=== PATIENT | female | born 1950 | race Caucasian/White ===

== ENCOUNTER → 2016-08-24 | Outpatient (CLI) | payer MEDICARE ==
--- NOTE | 2016-08-24 14:41 | REP ---
MAXILLOFACIAL CT WITHOUT CONTRAST: HISTORY: Chronic sinusitis. COMPARISON: 07/22/2009. Mucosal thickening is present in the sinuses. There is complete opacification of the right frontal sinus. There is almost complete opacification of the left frontal and right ethmoid sinuses. Moderate mucosal thickening is present in the left ethmoid and right maxillary sinuses. Minimal mucosal thickening is present in the sphenoid and left maxillary sinuses. Mucosal thickening involves the osteomeatal units. The left osteomeatal unit is incompletely seen. This is likely due to demineralization secondary to chronic sinusitis. The middle and inferior nasal turbinates are partially paradoxical. There is brennon bullosa on the left middle nasal turbinate. There is mild deviation of the nasal septum to the right. The nasal septum abuts the left middle nasal turbinate. The cribriform plate, medial faye of the orbits and optic canals are intact. The carotid canals form a segment of the posterolateral faye of the sphenoid sinus. The sphenoid sinus septum inserts into the right internal carotid canal wall. IMPRESSION: Sinus mucosal thickening as described above. Signed by Tom Ocampo MD 08/24/2016 02:44 P
== END ==
LOC: M RAD 13:19
PROVIDERS: ATTEND Otolaryngology
DX: J32.4 Chronic pansinusitis (principal)

== ENCOUNTER → 2016-11-25 | Outpatient (REF) | payer MEDICARE ==
[2016-11-25 11:43] LABS: CREATININE FOR GFR 0.82 MG/DL (0.55-1.02); GLOMERULAR FILTRATION RATE > 60.0 (>45)
[2016-11-25 11:55] LABS: ALBUMIN 3.5 GM/DL (3.2-5.2); ALBUMIN/GLOBULIN RATIO 1.17 (1.00-1.93); ALKALINE PHOSPHATASE 96 U/L (45-117); ALT/SGPT 20 U/L (12-78); ANION GAP 6 MEQ/L (8-16); AST/SGOT 10 U/L (15-37); BILIRUBIN,TOTAL 0.5 MG/DL (0.2-1.0); BLOOD UREA NITROGEN 22 MG/DL (7-18); CALCIUM LEVEL 9.3 MG/DL (8.8-10.2); CARBON DIOXIDE LEVEL 31 MEQ/L (21-32); CHLORIDE LEVEL 106 MEQ/L (98-107); CHOLESTEROL LEVEL 207 MG/DL (<200); CREATININE FOR GFR 0.84 MG/DL (0.55-1.02); GLOMERULAR FILTRATION RATE > 60.0 (>45); GLUCOSE, FASTING 106 MG/DL (80-110); POTASSIUM SERUM 4.4 MEQ/L (3.5-5.1); SODIUM LEVEL 143 MEQ/L (136-145); TOTAL PROTEIN 6.5 GM/DL (6.4-8.2); TRIGLYCERIDES LEVEL 305 MG/DL (<150)
== END ==
LOC: M SFHCADAM 09:39
PROVIDERS: ATTEND Internal Medicine
DX: I10 Essential (primary) hypertension (principal); R73.01 Impaired fasting glucose; E78.00 Pure hypercholesterolemia, unspecified; L65.9 Nonscarring hair loss, unspecified; E55.9 Vitamin D deficiency, unspecified; M79.1 Myalgia; Z11.59 Encounter for screening for other viral diseases

== ENCOUNTER → 2017-11-30 | Outpatient (REF) | payer MEDICARE ==
[2017-11-30 12:54] LABS: HEMATOCRIT 40.4 % (36.0-47.0); HEMOGLOBIN 13.7 g/dl (12.0-15.5); MEAN CORPUSCULAR HEMOGLOBIN 28.5 pg (27.0-33.0); MEAN CORPUSCULAR HGB CONC 33.9 g/dl (32.0-36.5); PLATELET COUNT, AUTOMATED 401 10^3/uL (150-450); RED BLOOD COUNT 4.81 10^6/uL (4.00-5.40); RED CELL DISTRIBUTION WIDTH 13.1 % (11.5-14.5); WHITE BLOOD COUNT 6.6 10^3/uL (4.0-10.0)
[2017-11-30 13:45] LABS: ALBUMIN 3.5 GM/DL (3.2-5.2); ALBUMIN/GLOBULIN RATIO 1.13 (1.00-1.93); ALKALINE PHOSPHATASE 87 U/L (45-117); ALT/SGPT 16 U/L (12-78); ANION GAP 6 MEQ/L (8-16); AST/SGOT 11 U/L (7-37); BILIRUBIN,TOTAL 0.8 MG/DL (0.2-1.0); BLOOD UREA NITROGEN 21 MG/DL (7-18); CALCIUM LEVEL 8.9 MG/DL (8.8-10.2); CARBON DIOXIDE LEVEL 29 MEQ/L (21-32); CHLORIDE LEVEL 110 MEQ/L (98-107); CHOLESTEROL LEVEL 226 MG/DL (<200); CHOLESTEROL RISK RATIO 5.794 (<5); CREATININE FOR GFR 0.74 MG/DL (0.55-1.30); GLOMERULAR FILTRATION RATE > 60.0 (>45); GLUCOSE, FASTING 92 MG/DL (70-100); HDL CHOLESTEROL 39 MG/DL (>40); LDL CHOLESTEROL 161.6 MG/DL (<100); MAGNESIUM LEVEL 2.4 MG/DL (1.8-2.4); NON-HDL-C 187 MG/DL; POTASSIUM SERUM 4.3 MEQ/L (3.5-5.1); SODIUM LEVEL 145 MEQ/L (136-145); TOTAL PROTEIN 6.6 GM/DL (6.4-8.2); TRIGLYCERIDES LEVEL 127 MG/DL (<150)
[2017-11-30 14:05] LABS: ESTIMATED AVERAGE GLUCOSE 117 MG/DL (60-110); HEMOGLOBIN A1c 5.7 %
== END ==
LOC: M SFHCADAM 11:24
DX: J44.9 Chronic obstructive pulmonary disease, unspecified (principal); I10 Essential (primary) hypertension; R73.01 Impaired fasting glucose; E78.00 Pure hypercholesterolemia, unspecified
CPT/HCPCS: 83735

== ENCOUNTER → 2018-09-16 | Outpatient (CLI) | payer MEDICARE ==
--- NOTE | 2018-09-16 13:24 | REP ---
LOW-DOSE LUNG SCREENING CT: 09/16/2018. Comparison: Chest x-ray 06/09/2017, CT chest with contrast 05/28/2009. Clinical history: Lung cancer screening: Personal history of nicotine dependence. Findings: Screening CT protocol followed. The only thin-section lung windows are presented per protocol. There is a 3 mm nodule superior segment of the right lower lobe unchanged from the study in 2009. There is a peripheral 5 mm noncalcified nodule on image 70 in the mid axillary line right lower lobe, this was 4 mm on the study 10 years ago. Some ground-glass opacity in the lateral segment of the right middle lobe peripherally on images 64 through 67. There are fibrotic change in the inferior lingular segment of the lower left lung at the left base adjacent to the heart border and also stable. Minor dependent atelectatic changes deep sulcus on the left. There is a 4.3 mm noncalcified nodule in the posterior segment of the right upper lobe adjacent to the paraspinal region. This is increased from 3 mm in that 2009. Minor apical pleuroparenchymal scarring noted and unchanged. No gross widening the mediastinum. Heart not grossly enlarged. No effusion, pleural thickening, calcified pleural plaque or pleural-based mass. Impression: 1. LungRADS category II, benign. No new nodules. A few nodules seen are stable or 1-2 mm larger compared to the 2009 study. Recommend follow[address] lung screening protocol in 1 year. Patients with this category of findings have less of 1% chance of malignancy at the time of the examination. Electronically Signed by Azeem Hopkins MD 09/16/2018 05:50 P
== END ==
LOC: M RAD 09:48
PROVIDERS: ATTEND Internal Medicine Pulmonary Disease
DX: Z12.2 Encounter for screening for malignant neoplasm of respiratory organs (principal); Z87.891 Personal history of nicotine dependence; R91.8 Other nonspecific abnormal finding of lung field

== ENCOUNTER → 2018-10-03 | Outpatient (REF) | payer MEDICARE | LOC: M SFHCPLAZ 16:58 | PROVIDERS: ATTEND Nurse Practitioner Adult Health | DX: R68.89 Other general symptoms and signs (principal) | CPT/HCPCS: 87081; 87804; G0463 ==

== ENCOUNTER → 2018-10-06 | Outpatient (REF) | payer MEDICARE ==
[2018-10-06 19:59] LABS: HEMATOCRIT 40.1 % (36.0-47.0); HEMOGLOBIN 13.5 g/dl (12.0-15.5); MEAN CORPUSCULAR HEMOGLOBIN 28.1 pg (27.0-33.0); MEAN CORPUSCULAR HGB CONC 33.7 g/dl (32.0-36.5); MEAN CORPUSCULAR VOLUME 83.4 fl (80.0-96.0); PLATELET COUNT, AUTOMATED 453 10^3/uL (150-450); RED BLOOD COUNT 4.81 10^6/uL (4.00-5.40); WHITE BLOOD COUNT 7.7 10^3/uL (4.0-10.0)
[2018-10-06 20:26] LABS: ALBUMIN 3.2 GM/DL (3.2-5.2); ALT/SGPT 22 U/L (12-78); BILIRUBIN,TOTAL 0.7 MG/DL (0.2-1.0); BLOOD UREA NITROGEN 26 MG/DL (7-18); CALCIUM LEVEL 8.9 MG/DL (8.8-10.2); CARBON DIOXIDE LEVEL 28 MEQ/L (21-32); CHLORIDE LEVEL 105 MEQ/L (98-107); CHOLESTEROL LEVEL 236 MG/DL (<200); CHOLESTEROL RISK RATIO 6.941 (<5); CREATININE FOR GFR 0.71 MG/DL (0.55-1.30); GLOMERULAR FILTRATION RATE > 60.0 (>45); GLUCOSE, FASTING 95 MG/DL (70-100); HDL CHOLESTEROL 34 MG/DL (>40); LDL CHOLESTEROL 164 MG/DL (<100); NON-HDL-C 202 MG/DL; POTASSIUM SERUM 3.9 MEQ/L (3.5-5.1); SODIUM LEVEL 140 MEQ/L (136-145); TOTAL 25(OH) VITAMIN D 54.9 NG/ML (30.0-100.0); TOTAL PROTEIN 6.6 GM/DL (6.4-8.2); TRIGLYCERIDES LEVEL 188 MG/DL (<150)
[2018-10-06 20:27] LABS: HEMOGLOBIN A1c 6.1 %
== END ==
LOC: M SFHCADAM 13:10
PROVIDERS: ATTEND Internal Medicine
DX: J44.9 Chronic obstructive pulmonary disease, unspecified (principal); I10 Essential (primary) hypertension; R73.01 Impaired fasting glucose; E78.00 Pure hypercholesterolemia, unspecified; E55.9 Vitamin D deficiency, unspecified

== ENCOUNTER → 2018-10-31 | Outpatient (REF) | payer MEDICARE ==
[2018-10-31 15:44] LABS: IMMUNOGLOBULIN E 15.9 IU/ML (<100); IMMUNOGLOBULIN M 87.9 MG/DL (40-230)
== END ==
LOC: M SFHCPLAZ 11:44
PROVIDERS: ATTEND Internal Medicine Infectious Disease
DX: J32.9 Chronic sinusitis, unspecified (principal)

== ENCOUNTER → 2018-11-17 | Outpatient (CLI) | payer MEDICARE ==
--- NOTE | 2018-11-17 12:48 | REP ---
MAXILLOFACIAL CT STUDY WITHOUT CONTRAST: HISTORY: Recurrent sinusitis. History of to prior sinus surgery. Preoperative planning. COMPARISON STUDY: August 24, 2016. CT FINDINGS: There is moderate mucosal thickening affecting the maxillary sinuses bilaterally. There is evidence of nasoantral window procedure bilaterally. There is a narrow opening on the right between the maxillary sinus and the nasal cavity but on the left it is occluded with mucosal thickening. There is a complete opacification of the ethmoid air cells bilaterally with some septal thickening. There is moderate mucosal thickening affecting the frontal sinuses bilaterally. Moderate mucosal thickening is seen affecting the sphenoid sinus air cells bilaterally. There is chronic bony sinus wall thickening affecting the maxillary sinuses bilaterally. Orbital margins are intact. No intraorbital abnormality is seen. Mastoid aeration remains normal. IMPRESSION: Tracy sinusitis changes as noted above. The maxillary sinuses are more opacified than they were on the August 24, 2016. Ethmoid sinuses are completely opacified bilaterally. Electronically Signed by Hai Ramos MD 11/17/2018 06:58 P
== END ==
LOC: M RAD 09:36
PROVIDERS: ATTEND Otolaryngology
DX: J32.9 Chronic sinusitis, unspecified (principal)

== ENCOUNTER → 2018-12-13 | Outpatient (REF) | payer MEDICARE ==
[~2018-12-13] MED LIST: ADVA230A INH; ALLE180T33 PO; ASPI81TA26 PO; ATOR80TA59 PO; BUDE0.5S6; COQ-100C5 PO; LASI40TA9 PO; LISI10TA4 PO; MONT10TA2 PO; MUPI2OI; NASA1SPR; OMEP40CA2 PO; PULM0.5S NARES; SULF1TAB93; VITA50005 PO
== END ==
LOC: M SFHCPLAZ 13:13
PROVIDERS: ATTEND Internal Medicine Infectious Disease
DX: J32.0 Chronic maxillary sinusitis (principal)
CPT/HCPCS: 87070; 87077; 87186; G0463

== ENCOUNTER 2018-12-21 08:02 | Day surgery (SDC) | payer MEDICARE ==
[2018-12-21] VITALS (7 sets, daily range): BP systolic 136–183; BP diastolic 65–77
[~2018-12-21] VITALS: Ht 167.6 cm; Wt 100.0 kg
[~2018-12-21 08:02] MED LIST changes: +LR 1,000 ML IV ONE; -SULF1TAB93; +dexameTHASONE 4 MG/ML 1ML VIAL (J1100) IV ONE
[2018-12-21] MEDS ORDERED: ONDANSETRON 4MG/2ML VIAL (J2405) As Ordered ONE (08:39)
[2018-12-21] MEDS ORDERED: GLYCOPYRROLATE INJ 0.2 MG/ML 2 ML VIAL As Ordered ONE (08:39)
[2018-12-21] MEDS ORDERED: HYDROmorphone HCL 2 MG/ML 1ML VIAL (J1170) As Ordered ONE (08:39)
[2018-12-21] MEDS ORDERED: fentaNYL 100 MCG/2 ML INJECTION (J3010) As Ordered ONE ×2 (08:39→12:17)
[2018-12-21] MEDS ORDERED: PROPOFOL 200 MG/20 ML VIAL As Ordered ONE ×2 (08:39→10:36)
[2018-12-21] MEDS ORDERED: ROCURONIUM BROMIDE 50 MG/5 ML VIAL As Ordered ONE ×2 (08:39→10:21)
[2018-12-21] MEDS ORDERED: NEOSTIGMINE 10 MG/10 ML VIAL (J2710) As Ordered ONE (08:39)
[2018-12-21] MEDS ORDERED: LIDOCAINE 2% INJ 100 MG/5 ML SDV (FOR ANES.) As Ordered ONE (08:39)
[2018-12-21] MEDS ORDERED: MIDAZOLAM INJ 2 MG/2 ML VIAL (J2250) As Ordered ONE (08:39)
[2018-12-21] MEDS ORDERED: dexameTHASONE 4 MG/ML 1ML VIAL (J1100) As Ordered ONE (08:39)
[2018-12-21] MEDS: FEXOFENADINE 60 MG TAB PO SCH (09:00)
[2018-12-21] MEDS ORDERED: SULF1TAB93 (09:07)
[2018-12-21] MEDS ORDERED: METHYLENE BLUE 0.5% (5MG/ML) 10 ML AMP (PROVAYBLUE)(Q9968 PER 1MG) As Ordered ONE (09:24)
[2018-12-21] MEDS ORDERED: LIDOCAINE W/EPINEPHRINE 1% 20ML VIAL As Ordered ONE (09:24)
[2018-12-21] MEDS ORDERED: SODIUM CHLORIDE 0.9% NASAL GEL 15GM (AYR) As Ordered ONE (09:24)
[2018-12-21] MEDS ORDERED: EPINEPHrine 1MG/ML INJ 30ML MD-VIAL As Ordered ONE (09:24)
[2018-12-21] MEDS ORDERED: LR 1,000 ML IV SCH ×2 (13:30)
[2018-12-21] MEDS ORDERED: ONDANSETRON 4MG/2ML VIAL (J2405) IV PRN (13:30)
[2018-12-21] MEDS ORDERED: fentaNYL 100 MCG/2 ML INJECTION (J3010) IV PRN (13:30)
[2018-12-21] MEDS ORDERED: METOCLOPRAMIDE INJ 10MG/2ML VIAL (J2765) IV PRN (13:30)
[2018-12-21] MEDS ORDERED: ALBUTEROL SULFATE 2.5 MG/0.5 ML INH NEB SOLN As Ordered ONE (14:52)
[2018-12-21] MEDS ORDERED: ALBUTEROL SULFATE 2.5 MG/0.5 ML INH NEB SOLN INH ONE (15:00)
[2018-12-21] MEDS: LR 1,000 ML IV SCH ×2 (17:00→20:10)
[2018-12-21] MEDS ORDERED: FUROSEMIDE 40 MG TAB PO SCH (17:15)
[2018-12-21 18:00] LABS: HEMATOCRIT 42.4 % (36.0-47.0); HEMOGLOBIN 13.9 g/dl (12.0-15.5); MEAN CORPUSCULAR HEMOGLOBIN 28.1 pg (27.0-33.0); MEAN CORPUSCULAR HGB CONC 32.8 g/dl (32.0-36.5); MEAN CORPUSCULAR VOLUME 85.7 fl (80.0-96.0); PLATELET COUNT, AUTOMATED 422 10^3/uL (150-450); RED BLOOD COUNT 4.95 10^6/uL (4.00-5.40); WHITE BLOOD COUNT 13.8 10^3/uL (4.0-10.0)
--- NOTE | 2018-12-21 18:20 | REP ---
Chest x-ray: Two views. History: Short of breath. Comparison study: June 09, 2017. Findings: Oxygen delivery tubing is seen. The lungs are well inflated and free of infiltrate. Pleural angles are sharp. Heart size is normal. Pulmonary vasculature is not increased. No significant bony abnormality is seen. Impression: No acute disease. Electronically Signed by Hai Ramos MD 12/21/2018 06:11 P
[2018-12-21] MEDS: ATORVASTATIN 20 MG TAB PO SCH (18:24)
[2018-12-21] MEDS: LISINOPRIL 10 MG TAB PO SCH (18:24)
[2018-12-21] MEDS: ASPIRIN 81 MG ENTERIC TAB PO SCH (18:26)
[2018-12-21 18:27] LABS: ALBUMIN 3.5 GM/DL (3.2-5.2); BILIRUBIN,TOTAL 0.4 MG/DL (0.2-1.0); CALCIUM LEVEL 8.7 MG/DL (8.8-10.2); CREATININE FOR GFR 1.17 MG/DL (0.55-1.30); GLOMERULAR FILTRATION RATE 48.8 (>45); POTASSIUM SERUM 4.5 MEQ/L (3.5-5.1); TOTAL PROTEIN 7.4 GM/DL (6.4-8.2)
[2018-12-21] MEDS ORDERED: SIMETHICONE 80 MG CHEW TAB PO PRN (18:30)
--- NOTE | 2018-12-21 18:30 | HPEPDOC ---
General Date of Admission Attending Physician: SHARAD JOVEL MD Chief Complaint The patient is a 68-year-old female admitted with a reason for visit of Chronic Rhinosinusitis. History of Present Illness Patient is an obese female, past medical history significant for hypertension, COPD, generalized osteoporosis, seasonal allergies, with chronic sinusitis for which she had sinus surgery today by ENT. Post surgery, patient was hypoxic with oxygen saturation dropping into the 70s. Her discharge home was delayed for further observation, evaluation and management. On assessment of patient she states she has had intermittent periods of shortness of breath with minimal exertion for over 2 years. Examples of minimal activity of walking to the end of her driveway, or walking up the stairs. She is followed by Dr. Harvey pulmonology. She has not had to use oxygen at home. She denied any chest pain and at time of evaluation was on 2 L nasal cannula. Oxygen saturation is in the low 90s Home Medications Scheduled Aspirin (Aspirin EC) 81 Mg Tablet.dr, 81 MG PO DAILY, (Reported) Atorvastatin Calcium (Atorvastatin Calcium) 80 Mg Tablet, 80 MG PO DAILY, (Reported) Budesonide (Pulmicort) 0.5 Mg/2 Ml Ampul.neb, 0.5 MG NARES BID, (Reported) Ergocalciferol (Vitamin D2) (Vitamin D2) 50,000 Unit Capsule, 50,000 UNIT PO QWEEK, (Reported) Fexofenadine HCl (Aissatou Allergy) 180 Mg Tablet, 180 MG PO DAILY, (Reported) Fluticasone Propion/Salmeterol (Advair Hfa 230-21 Mcg Inhaler) 12 Gm Hfa.aer.ad, 2 PUFFS INH BID, (Reported) Furosemide (Lasix) 40 Mg Tablet, 40 MG PO DAILYPRN, (Reported) Lisinopril (Lisinopril) 10 Mg Tablet, 10 MG PO DAILY, (Reported) Montelukast Sodium (Montelukast Sodium) 10 Mg Tablet, 10 MG PO DAILY, (Reported) Omeprazole (Omeprazole) 40 Mg Capsule.dr, 40 MG PO DAILY, (Reported) Ubidecarenone (Coq-10) 100 Mg Capsule, 400 MG PO DAILY, (Reported) Scheduled PRN Triamcinolone Acetonide (Nasacort) 10.8 Ml [place], 55 MCG NA BIDP PRN for NASAL CONGESTION, (Reported) Miscellaneous Medications Sulfamethoxazole/Trimethoprim (Sulfamethoxazole-Tmp Ds Tablet) 1 Each Tablet, (Reported) Allergies Coded Allergies: METALS (Verified Allergy, Intermediate, METAL/NICKEL-RASH,RUNNY NOSE,SNEEZING, 10/09/09) doxycycline (Verified Allergy, Unknown, gi issues, 12/14/18) ENVIROMENTAL (Verified Adverse Reaction, Mild, ANIMAL/ENVIRONMENTAL- ITCHING EYES, 12/14/18) acetaminophen (Verified Adverse Reaction, Unknown, nausea, 12/14/18) oxycodone (Verified Adverse Reaction, Unknown, nausea, 12/14/18) streptomycin (Verified Adverse Reaction, Unknown, pins and needles of fin gers and lips, 12/14/18) Past Medical History Medical History Hypertension COPD Hypercholesterolemia Generalized osteoarthrosis Chronic maxillary sinusitis Seasonal allergies Surgical History Tonsillectomy [place] teeth removal Bilateral otoplasty Left breast lumpectomy Septoplasty Skin biopsy from left chest Sinus polyp removal Colonoscopy Removal of left breast intraductal papilloma Sinus surgery Social History * Smoker: former Smoker Alcohol: rarely Drugs: denies A-FIB/CHADSVASC A-FIB History Current/History of A-Fib/PAF?: No Current Oral Anticoagulant The: No Review of Systems Other systems A 10 point pertinent review of systems was completed, negative except as stated in the history of presenting illness Physical Examination Other physical findings GENERAL: NAD SKIN : Warm, dry intact HEENT: Atraumatic, normocephalic, PERRL, moist mucous membrane CV: Regular rate and rhythm, S1S2, no JVD, no edema, distal pulses + and palpable RESP: diminished, no accessory muscle use noted ABDOMEN: BS+ non distended non tender MS: no joint deformities NEURO: Alert and oriented x 3, CN2-12 grossly intact PSYCH: no anxiety or agitation, appropriate mood and affect. Vital Signs Vital Signs Date Time Temp Pulse Resp B/P (MAP) Pulse Ox O2 Delivery O2 Flow Rate FiO2 12/21/18 17:00 2.0 12/21/18 16:55 97.3 86 16 183/77 (112) 96 Laboratory Data Labs 24H Laboratory Tests 2 12/21/18 17:51: CBC/BMP Microbiology Microbiology 12/21/18 Fungal Smear, Received Pending 12/21/18 Fungal Culture, Received Pending 12/21/18 Gram Stain - Final, Resulted 12/21/18 Wound Culture, Resulted Pending 12/21/18 Fungal Smear, Received Pending 12/21/18 Fungal Culture, Received Pending 12/21/18 Anaerobic Culture, Received Pending 12/21/18 Anaerobic Culture, Received Pending 12/21/18 Gram Stain - Final, Resulted 12/21/18 Wound Culture, Resulted Pending Assessment/Plan Acute hypoxia -In the postoperative setting -cause could be multifactorial with underlying COPD and sedating meds used for surgery -CT chest with and without contrast to evaluate for pulmonary emboli -Continue supplemental oxygen with monitoring to keep saturation greater than 90 -scheduled bronchodilator therapy Chronic maxillary sinusitis -S/P sinus surgery 12/21/2018 -continue augmentin Hypertension -Continue lisinopril COPD -Scheduled and as needed nebulizer therapy -Continued monitoring of oxygen saturation to keep greater than 90% -Supplemental oxygen -Follow findings of CTA Seasonal allergies -Continue Advair, Singulair and Nasacort GI and DVT prophylaxis -Lovenox and proton pump inhibitor daily Plan / VTE VTE Prophylaxis Ordered?: Yes STARLA GOODMAN December 21, 2018 18:30
[2018-12-21] MEDS: BUDESONIDE 0.5 MG/2 ML INHALATION SUSPENSION INH SCH ×2 (20:00→20:52)
[2018-12-21] MEDS: SODIUM CHLORIDE NASAL 0.65% SPRAY BTL (OCEAN) SCH (20:16)
[2018-12-21] MEDS: AUGMENTIN 875 MG TAB PO SCH (20:16)
[2018-12-21] MEDS: IPRATROPIUM 0.5MG/ALBUTEROL 2.5MG INH SOL UD 3ML (DUONEB)(J7620) NEB SCH (20:24)
[2018-12-21] MEDS: ADVAIR HFA 230/21MCG INHALER INH SCH (20:25)
[2018-12-21] MEDS ORDERED: ENOXAPARIN 40 MG/0.4 ML SYRINGE (J1650) SC SCH (21:00)
[2018-12-22 02:00] VITALS: BP 138/68
[2018-12-22 06:00] VITALS: BP 128/65
[2018-12-22] MEDS: IPRATROPIUM 0.5MG/ALBUTEROL 2.5MG INH SOL UD 3ML (DUONEB)(J7620) NEB SCH (08:00)
[2018-12-22] MEDS: ADVAIR HFA 230/21MCG INHALER INH SCH (08:09)
[2018-12-22] MEDS ORDERED: OMEPRAZOLE 20 MG CAP PO SCH (09:00)
[2018-12-22] MEDS ORDERED: VITAMIN D 50,000 UNITS CAPSULE (ERGOCALCIFEROL 1.25MG) PO SCH (09:00)
[2018-12-22] MEDS ORDERED: MONTELUKAST 10 MG TAB PO SCH (09:00)
[2018-12-22] MEDS: FEXOFENADINE 60 MG TAB PO SCH (09:14)
[2018-12-22] MEDS: ASPIRIN 81 MG ENTERIC TAB PO SCH (09:15)
[2018-12-22] MEDS: SODIUM CHLORIDE NASAL 0.65% SPRAY BTL (OCEAN) SCH (09:15)
[2018-12-22] MEDS: AUGMENTIN 875 MG TAB PO SCH (09:15)
[2018-12-22] MEDS: ATORVASTATIN 20 MG TAB PO SCH (09:15)
[2018-12-22 09:16] VITALS: BP 128/65
[2018-12-22] MEDS: LISINOPRIL 10 MG TAB PO SCH (09:16)
[2018-12-22 10:00] VITALS: BP 139/71
--- NOTE | 2018-12-22 10:30 | IPNPDOC ---
Date Seen The patient was seen on 12/22/18. Progress Note SUBJECTIVE: Patient was found sitting up in bed eating breakfast comfortably today. She denies any complaints including any chest pain or shortness of breath. Has been off of oxygen support all morning with saturations stable, 94-96% on monitor. Patient reports that her saturations always drop postnasal surgery as she has significant postnasal drip postop and that this is normal for her. She states that she is back to her baseline and is ready to go home. OBJECTIVE PHYSICAL EXAMINATION: VITAL SIGNS: Please see below. General: No acute distress, Alert Eyes: Normal sclera, EOMI, [place] HENT: Atraumatic, neck supple, moist mucous membranes Cardiovascular: Normal rate, normal rhythm. No murmurs appreciated. Pulmonary: Clear to auscultation b/l, no wheezing GI: Soft, nontender, nondistended Skin: Warm and dry Neuro: CN grossly intact. No focal deficits. Strengths equal b/l. Psych: oriented x 3 LABORATORY DATA, IMAGING STUDIES, MICROBIOLOGY: Please see below. ASSESSMENT AND PLAN: 1. Acute hypoxia - Occurred post op in setting of underlying COPD and chronic rhinosinusitis. - States that she has had 3 surgeries and always desat immediate post op due to fluids in her pharynx. - CTA was ordered yesterday but patient had refused because she doesn't think she is at risk for have symptoms for PE, patient is a prior nurse. - She was comfortable this morning without any SOB, normal HR and saturations >94% on room air. - CXR noted with no abnormalities. - Recommend follow up as outpatient with her Test Data Developer Dr. Harvey within 1 week. 2. Chronic Maxillary sinusitis - s/p surgery 12/21 with previous similar surgeries in the past. 3. HTN - c/w home medications. Monitor BP 4. COPD - c/w nebs as needed. - O2 support. 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 Patient technically is outpatient and not admitted. I think that she is stable from my point of view and can be discharged per primary provider's discretion. DISPOSITION: Home. A-FIB/CHADSVASC A-FIB History Current/History of A-Fib/PAF?: No VS, I&O, 24H, Fishbone Vital Signs/I&O Vital Signs Date Time Temp Pulse Resp B/P (MAP) Pulse Ox O2 Delivery O2 Flow Rate FiO2 12/22/18 09:16 128/65 12/22/18 06:00 98.2 76 14 94 12/22/18 03:44 Tent/Van 5.0 28 I&O- Last 24 Hours up to 6 AM 12/22/18 06:00 Intake Total 3390 ml Output Total 30 ml Balance 3360 ml Laboratory Data 24H LABS Laboratory Tests 2 12/21/18 17:51: Nucleated Red Blood Cells % (auto) 0.0, Anion Gap 9, Glomerular Filtration Rate 48.8, Blood Urea Nitrogen 30H, Creatinine 1.17, Sodium Level 138, Potassium Level 4.5, Chloride Level 106, Carbon Dioxide Level 23, Calcium Level 8.7L, Aspartate Amino Transf (AST/SGOT) 12, Alanine Aminotransferase (ALT/SGPT) 23, Alkaline Phosphatase 114, Total Bilirubin 0.4, Total Protein 7.4, Albumin 3.5, YP-Apa-G-Type Natriuretic Peptide 55, Albumin/Globulin Ratio 0.90L CBC/BMP Laboratory Tests 12/21/18 17:51 Red Blood Count 4.95, Mean Corpuscular Volume 85.7, Mean Corpuscular Hemoglobin 28.1, Mean Corpuscular Hemoglobin Concent 32.8, Red Cell Distribution Width 13.5, Calcium Level 8.7 L, Aspartate Amino Transf (AST/SGOT) 12, Alanine Aminotransferase (ALT/SGPT) 23, Alkaline Phosphatase 114, Total Bilirubin 0.4, Total Protein 7.4, Albumin 3.5 Microbiology Microbiology 12/21/18 Fungal Smear, Received Pending 12/21/18 Fungal Culture, Received Pending 12/21/18 Gram Stain - Final, Resulted 12/21/18 Wound Culture, Resulted Pending 12/21/18 Fungal Smear, Received Pending 12/21/18 Fungal Culture, Received Pending 12/21/18 Anaerobic Culture, Received Pending 12/21/18 Anaerobic Culture, Received Pending 12/21/18 Gram Stain - Final, Resulted 12/21/18 Wound Culture, Resulted Pending SHARAD JOVEL MD December 22, 2018 10:30
--- NOTE | 2019-01-10 22:07 | RO ---
DATE OF PROCEDURE: 12/21/2018 PREOPERATIVE DIAGNOSES: Chronic rhinitis, chronic maxillary sinusitis, chronic ethmoid sinusitis, chronic frontal sinusitis. Nasal polyposis. POSTOPERATIVE DIAGNOSES: Chronic rhinitis, chronic maxillary sinusitis, chronic ethmoid sinusitis, chronic frontal sinusitis. Nasal polyposis. PROCEDURE PERFORMED: 1. Stereotactic surgery using the Brainlab. 2. Bilateral endoscopic maxillary antrostomy with soft tissue removal and maxillary sinus lavage. 3. Bilateral endoscopic anterior and posterior ethmoidectomy. 4. Bilateral frontal sinusotomy using balloon and frontal sinus lavage. 5. Bilateral implantation of the Propel stents. SURGEON: Romain Gordillo MD PRIMER CHARGER: ANESTHESIA: GA CLINICAL PREAMBLE: This 68-year-old woman who has had two prior sinus surgeries done with the last one being done in [place] two years ago presented to my office complaining of constant bilateral nasal congestion. Examination revealed bilateral nasal polyposis with erythematous nasal mucosa consistent with chronic usage of Afrin. CT scan confirmed the presence of chronic rhinosinusitis with nasal polyposis. Management options including surgery listed above have been discussed with the patient in great detail. She understood and consented to the procedure. DESCRIPTION OF OPERATION: Patient was identified in preoperative holding and brought to the operating room in stable condition. In supine position on the operating table, patient received general anesthesia followed orotracheal intubation without incident. Patient was prepped and draped in the usual fashion for the procedure. The headband for the Brainlab system was successfully secured to the patient's forehead. Good surface matching was successfully performed with the Brainlab system. Good consistency between the patient's anatomy and the CT images was confirmed. Both sides of the eye were lubricated and protected using the Tegaderm. Both sides of the nasal cavity were packed using pledgets soaked in 1:1000 epinephrine. After a waiting period, the pledgets were removed. Using 0 degrees nasal endoscope both sides of the nasal cavity were inspected. Nasal polyposis was noted in both sides of the nasal cavity. The polyps and the anterior surface of the middle nasal turbinates were infiltrated with 1% lidocaine with 1:100,000 epinephrine. Debridement of the polyps were then carried out using the Olympus Benjamín microdebrider set in oscillating mode at 5000 RPM. At this time additional polyps were removed from the left ostiomeatal complex area. The remnant of the uncinate process was identified and then infiltrated with 1% lidocaine with 1:100,000 epinephrine. The left maxillary antrum was identified using ball-tip ostium seeker. Maxillary antrostomy was then performed with removal of the soft tissue. An accessory ostium was noted in the posterior fontanelle area. This was then connected to the left maxillary antrum. At this time the balloon was successfully introduced into the left frontal recess with positive trans-illumination of the left frontal sinus. The balloon was then inflated to an atmospheric pressure for 5 seconds. The frontal sinus was then irrigated with 200 mL of warm saline solution. At this time the remnant of the anterior ethmoid air cell with polypoid degeneration were identified and taken down. Additional remnant of the posterior ethmoid air cells were also identified and resected as well. The left maxillary sinus was lavaged with about 200 mL of warm saline solution as well. The left nasal cavity was then packed using pledgets soaked in 1:1000 epinephrine. The patient was then turned to the right side of the nasal cavity. The same procedure was carried out to infiltrate remnant of the right uncinate process followed by resection of the polypoid tissue around the right maxillary antrum. The right maxillary ostium was identified connected to the right maxillary antrum as well. Right frontal recess was identified and the balloon was placed into the right frontal sinus opening. The balloon was inflated to atmospheric pressure for 5 seconds. The right frontal sinus as irrigated with 100 mL of warm saline solution. The right maxillary sinus was similarly irrigated with 100 mL of warm saline lavage as well. The remnant of the right anterior ethmoid air cell with polypoid degeneration were resected. The remnant of the posterior ethmoid air cells with polypoid degeneration were also resected as well. The right ostiomeatal complex was then packed using pledgets soaked in 1:1000 epinephrine. After a waiting period, both ostiomeatal complexes were found to be free of bleeding. Pledgets were removed. The Propel stents were then placed into each side of the ostiomeatal complex to allow medialization of the left and right middle nasal turbinate. At the end of the procedure sponge and instrument counts were correct. No complications were encountered. Estimated blood loss was approximately 100 mL. General anesthesia was reversed and patient was extubated and brought to recovery room in stable condition. In the recovery area, patient exhibited full and symmetric extraocular motion with no evidence of periorbital ecchymosis. [facility]
== END 2018-12-22 10:39 | disposition home or self-care (01) ==
LOC: M SDC 08:02 → M MSPAV 16:53 → M SDC 12-22 10:39
PROVIDERS: ATTEND Otolaryngology
DX: J32.8 Other chronic sinusitis (principal); J32.0 Chronic maxillary sinusitis; J32.2 Chronic ethmoidal sinusitis; J32.1 Chronic frontal sinusitis; J33.9 Nasal polyp, unspecified; I10 Essential (primary) hypertension; J44.9 Chronic obstructive pulmonary disease, unspecified; K21.9 Gastro-esophageal reflux disease without esophagitis; E78.00 Pure hypercholesterolemia, unspecified; R29.898 Other symptoms and signs involving the musculoskeletal system; M12.9 Arthropathy, unspecified; M81.0 Age-related osteoporosis without current pathological fracture; J30.89 Other allergic rhinitis; Z88.1 Allergy status to other antibiotic agents; Z88.5 Allergy status to narcotic agent; Z88.6 Allergy status to analgesic agent; Z91.09 Other allergy status, other than to drugs and biological substances; Z86.14 Personal history of Methicillin resistant Staphylococcus aureus infection; Z90.710 Acquired absence of both cervix and uterus
CPT/HCPCS: 31255; 31267; 31296; 36415; 71046; 80053; 83880; 85027; 87070; 87075; 87102; 87205; 88305; C2625; G0378; J1100; J1170; J2250; J2405; J2710; J3010; Q9968

== ENCOUNTER → 2019-03-01 | Outpatient (REF) | payer MEDICARE ==
[~2019-03-01] MED LIST changes: -LR 1,000 ML IV ONE; +SULF1TAB93; -dexameTHASONE 4 MG/ML 1ML VIAL (J1100) IV ONE
== END ==
LOC: M LAB REF 12:27
PROVIDERS: ATTEND Otolaryngology
DX: J32.0 Chronic maxillary sinusitis (principal)

== ENCOUNTER → 2019-03-27 | Outpatient (REF) | payer MEDICARE ==
[2019-03-27 13:03] LABS: ALBUMIN 3.4 GM/DL (3.2-5.2); ALT/SGPT 19 U/L (12-78); BILIRUBIN,TOTAL 0.5 MG/DL (0.2-1.0); BLOOD UREA NITROGEN 18 MG/DL (7-18); CALCIUM LEVEL 9.1 MG/DL (8.8-10.2); CARBON DIOXIDE LEVEL 29 MEQ/L (21-32); CHLORIDE LEVEL 110 MEQ/L (98-107); CHOLESTEROL LEVEL 205 MG/DL (<200); CHOLESTEROL RISK RATIO 5.694 (<5); CREATININE FOR GFR 0.71 MG/DL (0.55-1.30); GLOMERULAR FILTRATION RATE > 60.0 (>45); GLUCOSE, FASTING 100 MG/DL (70-100); HDL CHOLESTEROL 36 MG/DL (>40); LDL CHOLESTEROL 125 MG/DL (<100); MAGNESIUM LEVEL 2.3 MG/DL (1.8-2.4); NON-HDL-C 169 MG/DL; POTASSIUM SERUM 4.4 MEQ/L (3.5-5.1); SODIUM LEVEL 143 MEQ/L (136-145); TOTAL PROTEIN 6.4 GM/DL (6.4-8.2); TRIGLYCERIDES LEVEL 220 MG/DL (<150)
[2019-03-27 14:17] LABS: HEMOGLOBIN A1c 6.5 %
== END ==
LOC: M SFHCADAM 10:36
PROVIDERS: ATTEND Internal Medicine
DX: I10 Essential (primary) hypertension (principal); R73.01 Impaired fasting glucose; E78.00 Pure hypercholesterolemia, unspecified

== ENCOUNTER → 2019-09-20 | Outpatient (REF) | payer MEDICARE ==
[~2019-09-20] MED LIST changes: -MONT10TA2 PO; +MONT10TA4 PO; -OMEP40CA2 PO; +OMEP40CA97 PO
== END ==
LOC: M SFHCADAM 14:20
PROVIDERS: ATTEND Internal Medicine
DX: E78.00 Pure hypercholesterolemia, unspecified (principal); R73.01 Impaired fasting glucose; E55.9 Vitamin D deficiency, unspecified

== ENCOUNTER → 2019-09-22 | Outpatient (CLI) | payer MEDICARE ==
[2019-09-22 17:37] LABS: ALBUMIN 3.5 GM/DL (3.2-5.2); ALT/SGPT 18 U/L (12-78); BLOOD UREA NITROGEN 26 MG/DL (7-18); CALCIUM LEVEL 8.8 MG/DL (8.8-10.2); CARBON DIOXIDE LEVEL 29 MEQ/L (21-32); CHLORIDE LEVEL 106 MEQ/L (98-107); CHOLESTEROL LEVEL 244 MG/DL (<200); CHOLESTEROL RISK RATIO 7.176 (<5); CREATININE FOR GFR 0.75 MG/DL (0.55-1.30); GLOMERULAR FILTRATION RATE > 60.0 (>39); GLUCOSE, FASTING 106 MG/DL (70-100); HDL CHOLESTEROL 34 MG/DL (>40); LDL CHOLESTEROL 164 MG/DL (<100); NON-HDL-C 210 MG/DL; POTASSIUM SERUM 4.1 MEQ/L (3.5-5.1); SODIUM LEVEL 139 MEQ/L (136-145); TOTAL PROTEIN 6.3 GM/DL (6.4-8.2); TRIGLYCERIDES LEVEL 232 MG/DL (<150)
[2019-09-22 17:41] LABS: MALB URINE SIEMENS 45.7 MG/L; MAU/CREAT RATIO 29.2 MCG/MG (0.0-30.0); TOTAL 25(OH) VITAMIN D 60.8 NG/ML (30.0-100.0)
== END ==
LOC: M ADAMS 13:31
PROVIDERS: ATTEND Internal Medicine
DX: E78.00 Pure hypercholesterolemia, unspecified (principal); R73.01 Impaired fasting glucose; E55.9 Vitamin D deficiency, unspecified

== ENCOUNTER → 2020-01-31 | Outpatient (CLI) | payer MEDICARE ==
--- NOTE | 2020-01-31 14:55 | REPPI ---
RIGHT HAND SERIES: Four views. HISTORY: Paronychia. Swelling of the 2nd finger. FINDINGS: There is diffuse osteopenia. Soft tissue swelling is seen about the middle and distal phalanges of the index finger mild in degree. No erosive change is seen. There is mild osteoarthritic spurring at the DIP joint of the index long and ring fingers. No soft tissue calcification is seen. IMPRESSION: Osteoarthritic changes. Diffuse osteoporosis. Soft tissue swelling of the index finger. Electronically Signed by Hai Ramos MD 01/31/2020 03:02 P
== END ==
LOC: M PLAIMG 11:45
PROVIDERS: ATTEND Physician Assistant Medical
DX: M19.041 Primary osteoarthritis, right hand (principal); M85.841 Other specified disorders of bone density and structure, right hand; L03.011 Cellulitis of right finger
CPT/HCPCS: 73130; G0463

== ENCOUNTER → 2020-02-07 | Outpatient (CLI) | payer MEDICARE ==
--- NOTE | 2020-02-07 10:35 | REPPI ---
Clinical: Right foot pain and swelling. Technique: AP, lateral, bilateral oblique views of the right foot. Findings: Generalized soft tissue swelling suggested. Underlying osteopenia and degenerative changes of the osseous structures and joint space is noted without obvious acute fracture or dislocation. Lateral view demonstrates small calcaneal heal spur. Impression: Soft-tissue swelling. No acute fracture or dislocation. Electronically Signed by Cliff Wells MD 02/07/2020 10:27 A
== END ==
LOC: M PLAIMG 10:06
PROVIDERS: ATTEND Family Medicine
DX: M85.871 Other specified disorders of bone density and structure, right ankle and foot (principal); M19.071 Primary osteoarthritis, right ankle and foot; M77.31 Calcaneal spur, right foot; M79.671 Pain in right foot; M79.89 Other specified soft tissue disorders
CPT/HCPCS: 73630; G0463

== ENCOUNTER → 2020-02-23 | Outpatient (REF) | payer MEDICARE ==
[2020-02-23 14:04] LABS: HEMATOCRIT 39.7 % (36.0-47.0); HEMOGLOBIN 12.9 g/dl (12.0-15.5); MEAN CORPUSCULAR HGB CONC 32.5 g/dl (32.0-36.5); MEAN CORPUSCULAR VOLUME 86.1 fl (80.0-96.0); PLATELET COUNT, AUTOMATED 381 10^3/uL (150-450); RED BLOOD COUNT 4.61 10^6/uL (4.00-5.40); WHITE BLOOD COUNT 5.5 10^3/uL (4.0-10.0)
[2020-02-23 14:42] LABS: ALBUMIN 3.5 GM/DL (3.2-5.2); ALT/SGPT 20 U/L (12-78); BILIRUBIN,TOTAL 0.7 MG/DL (0.2-1.0); BLOOD UREA NITROGEN 19 MG/DL (7-18); CALCIUM LEVEL 8.6 MG/DL (8.8-10.2); CARBON DIOXIDE LEVEL 28 MEQ/L (21-32); CHLORIDE LEVEL 107 MEQ/L (98-107); CHOLESTEROL LEVEL 198 MG/DL (<200); CHOLESTEROL RISK RATIO 6.387 (<5); CREATININE FOR GFR 0.66 MG/DL (0.55-1.30); GLOMERULAR FILTRATION RATE > 60.0 (>39); GLUCOSE, FASTING 86 MG/DL (70-100); HDL CHOLESTEROL 31 MG/DL (>40); LDL CHOLESTEROL 127 MG/DL (<100); NON-HDL-C 167 MG/DL; POTASSIUM SERUM 4.3 MEQ/L (3.5-5.1); SODIUM LEVEL 139 MEQ/L (136-145); TOTAL PROTEIN 6.4 GM/DL (6.4-8.2); TRIGLYCERIDES LEVEL 199 MG/DL (<150)
== END ==
LOC: M PLALAB 12:33
PROVIDERS: ATTEND Internal Medicine
DX: J44.9 Chronic obstructive pulmonary disease, unspecified (principal); E78.00 Pure hypercholesterolemia, unspecified

== ENCOUNTER → 2020-03-04 | Outpatient (REF) | payer MEDICARE ==
[2020-03-30 07:43] LABS: BASO # 0.1 10^3/uL (0.0-0.2); BASO % 0.7 % (0.0-1.0); EOS # 0.4 10^3/uL (0.0-0.5); EOS % 5.8 % (0.0-3.0); ERYTHROCYTE SEDIMENTATION RATE 5 mm/hr (0-30); HEMATOCRIT 40.7 % (36.0-47.0); HEMOGLOBIN 13.3 g/dl (12.0-15.5); LYMPH # 1.2 10^3/uL (1.5-5.0); LYMPH % 17.6 % (24.0-44.0); MEAN CORPUSCULAR HEMOGLOBIN 28.9 pg (27.0-33.0); MEAN CORPUSCULAR HGB CONC 32.7 g/dl (32.0-36.5); MEAN CORPUSCULAR VOLUME 88.3 fl (80.0-96.0); MONO # 0.6 10^3/uL (0.0-0.8); MONO % 9.2 % (0.0-5.0); NEUTROPHILS # 4.5 10^3/uL (1.5-8.5); NEUTROPHILS % 66.3 % (36.0-66.0); PLATELET COUNT, AUTOMATED 352 10^3/uL (150-450); RED BLOOD COUNT 4.61 10^6/uL (4.00-5.40); WHITE BLOOD COUNT 6.8 10^3/uL (4.0-10.0)
[2020-05-10 15:01] LABS: URIC ACID SEE SEPARATE REPORT MG/DL
== END ==
LOC: M PLALAB 12:50
PROVIDERS: ATTEND Physician Assistant
DX: M19.041 Primary osteoarthritis, right hand (principal)

== ENCOUNTER → 2020-05-09 | Outpatient (REF) | payer MEDICARE ==
[2020-05-09 13:08] LABS: BASO # 0.1 10^3/uL (0.0-0.2); BASO % 0.8 % (0.0-1.0); EOS # 0.2 10^3/uL (0.0-0.5); EOS % 1.4 % (0.0-3.0); HEMOGLOBIN 12.3 g/dl (12.0-15.5); LYMPH # 2.8 10^3/uL (1.5-5.0); LYMPH % 26.5 % (24.0-44.0); MEAN CORPUSCULAR HEMOGLOBIN 27.3 pg (27.0-33.0); MEAN CORPUSCULAR HGB CONC 32.4 g/dl (32.0-36.5); MEAN CORPUSCULAR VOLUME 84.3 fl (80.0-96.0); MONO # 0.9 10^3/uL (0.0-0.8); MONO % 8.5 % (0.0-5.0); NEUTROPHILS # 6.3 10^3/uL (1.5-8.5); NEUTROPHILS % 60.9 % (36.0-66.0); PLATELET COUNT, AUTOMATED 414 10^3/uL (150-450); RED BLOOD COUNT 4.51 10^6/uL (4.00-5.40); WHITE BLOOD COUNT 10.4 10^3/uL (4.0-10.0)
[2020-05-09 13:33] LABS: ERYTHROCYTE SEDIMENTATION RATE 5 mm/hr (0-30)
[2020-05-09 13:44] LABS: ALBUMIN 3.2 GM/DL (3.2-5.2); ALT/SGPT 22 U/L (12-78); BILIRUBIN,TOTAL 0.5 MG/DL (0.2-1.0); BLOOD UREA NITROGEN 27 MG/DL (7-18); CALCIUM LEVEL 9.3 MG/DL (8.8-10.2); CARBON DIOXIDE LEVEL 28 MEQ/L (21-32); CHLORIDE LEVEL 108 MEQ/L (98-107); CREATININE FOR GFR 0.75 MG/DL (0.55-1.30); GLOMERULAR FILTRATION RATE > 60.0 (>39); GLUCOSE, FASTING 97 MG/DL (70-100); SODIUM LEVEL 140 MEQ/L (136-145); TOTAL PROTEIN 6.3 GM/DL (6.4-8.2)
== END ==
LOC: M LABDRWAD 12:24
PROVIDERS: ATTEND Internal Medicine Infectious Disease
DX: J32.9 Chronic sinusitis, unspecified (principal); M86.9 Osteomyelitis, unspecified

== ENCOUNTER → 2020-05-16 | Outpatient (REF) | payer MEDICARE | LOC: M SFHCPLAZ 13:34 | PROVIDERS: ATTEND Internal Medicine Infectious Disease | DX: J32.0 Chronic maxillary sinusitis (principal) | CPT/HCPCS: 87070; 87077; 87102; 87186; G0463 ==

== ENCOUNTER → 2020-05-29 | Outpatient (CLI) | payer MEDICARE ==
--- NOTE | 2020-05-29 14:06 | REP ---
INDICATION: PERSONAL HX NICOTINE DEPENDENCE COMPARISON: 09/16/2018, 05/28/2009 TECHNIQUE: Axial noncontrast images from the thoracic inlet to the upper abdomen using low-dose lung screening technique (LDCT). FINDINGS: Moderate emphysematous changes are appreciated along with few scattered bullae and very minimal scarring at the lingula. Few small scattered pulmonary nodular densities measuring up to 3 mm and 4 mm pulmonary nodule along the subpleural right lower lobe (image 68) remains stable. Small 2 mm calcified granulomata are also noted. No consolidation or new suspicious nodule or mass lesion is appreciated. No pleural effusion. No pneumothorax. Tracheobronchial tree is patent. Atherosclerotic changes to the thoracic aorta and coronary arteries noted. IMPRESSION: *Lung-RADS category 2. Management recommendations include annual low-dose CT surveillance. *Moderate emphysematous changes and few scattered stable calcified granulomata and small noncalcified nodules remain essentially unchanged through 2008. No suspicious abnormalities are appreciated. <Electronically signed by Cliff Wells > 05/29/20 [id number]
== END ==
LOC: M RAD 12:58
PROVIDERS: ATTEND Internal Medicine Pulmonary Disease
DX: Z12.2 Encounter for screening for malignant neoplasm of respiratory organs (principal); Z87.891 Personal history of nicotine dependence

== ENCOUNTER → 2020-09-27 | Outpatient (REF) | payer MEDICARE ==
[~2020-09-27] MED LIST changes: +LISI10TA22 PO; -LISI10TA4 PO; +MONT10TA10 PO; -MONT10TA4 PO
[2020-09-27 13:27] LABS: HEMOGLOBIN A1c 5.9 %
[2020-09-27 13:52] LABS: ALBUMIN 3.6 GM/DL (3.2-5.2); ALT/SGPT 18 U/L (12-78); BILIRUBIN,TOTAL 0.6 MG/DL (0.2-1.0); BLOOD UREA NITROGEN 19 MG/DL (7-18); CALCIUM LEVEL 9.7 MG/DL (8.8-10.2); CARBON DIOXIDE LEVEL 29 MEQ/L (21-32); CHLORIDE LEVEL 107 MEQ/L (98-107); CHOLESTEROL LEVEL 251 MG/DL (<200); CHOLESTEROL RISK RATIO 6.605 (<5); CREATININE FOR GFR 0.82 MG/DL (0.55-1.30); GLOMERULAR FILTRATION RATE > 60.0 (>39); GLUCOSE, FASTING 116 MG/DL (70-100); HDL CHOLESTEROL 38 MG/DL (>40); LDL CHOLESTEROL 174 MG/DL (<100); MAGNESIUM LEVEL 2.2 MG/DL (1.8-2.4); NON-HDL-C 213 MG/DL; POTASSIUM SERUM 4.5 MEQ/L (3.5-5.1); SODIUM LEVEL 142 MEQ/L (136-145); TOTAL PROTEIN 6.5 GM/DL (6.4-8.2); TRIGLYCERIDES LEVEL 194 MG/DL (<150)
== END ==
LOC: M SFHCADAM 10:26
PROVIDERS: ATTEND Internal Medicine
DX: I10 Essential (primary) hypertension (principal); E78.00 Pure hypercholesterolemia, unspecified; R73.01 Impaired fasting glucose

== ENCOUNTER → 2020-10-01 | Outpatient (CLI) | payer MEDICARE ==
--- NOTE | 2020-10-01 13:16 | REPPI ---
INDICATION: Z87.01 HISTORY OF PNEUMONIA. COMPARISON: Comparison chest x-ray December 21, 2018. TECHNIQUE: Two views.. FINDINGS: The lungs are well inflated and free of infiltrate. The pleural angles are sharp. The heart size is normal. Pulmonary vasculature is not increased. No significant bony abnormality is seen. IMPRESSION: No active disease.. <Electronically signed by Parker Ramos > 10/01/20 [id number]
== END ==
LOC: M PLAIMG 10:00
PROVIDERS: ATTEND Internal Medicine
DX: Z87.01 Personal history of pneumonia (recurrent) (principal)
CPT/HCPCS: 71046; G0463

== ENCOUNTER → 2021-02-26 | Outpatient (CLI) | payer MEDICARE ==
[~2021-02-26] MED LIST changes: +BACTDSTA; +OMEP40CA4 PO; -OMEP40CA97 PO; -SULF1TAB93
[2021-02-26 16:38] LABS: BASO % 0.9 % (0.0-1.0); EOS # 0.5 10^3/uL (0.0-0.5); EOS % 6.5 % (0.0-3.0); HEMATOCRIT 43.1 % (36.0-47.0); LYMPH # 1.4 10^3/uL (1.5-5.0); MEAN CORPUSCULAR HEMOGLOBIN 27.8 pg (27.0-33.0); MEAN CORPUSCULAR HGB CONC 32.5 g/dl (32.0-36.5); MEAN CORPUSCULAR VOLUME 85.7 fl (80.0-96.0); MONO # 0.6 10^3/uL (0.0-0.8); MONO % 8.1 % (2.0-8.0); NEUTROPHILS % 66.1 % (36.0-66.0); PLATELET COUNT, AUTOMATED 402 10^3/uL (150-450); RED BLOOD COUNT 5.03 10^6/uL (4.00-5.40); WHITE BLOOD COUNT 7.5 10^3/uL (4.0-10.0)
[2021-02-26 16:39] LABS: BASO # 0.1 10^3/uL (0.0-0.2)
[2021-02-26 17:05] LABS: HEMOGLOBIN A1c 5.7 %
[2021-02-26 17:18] LABS: ALBUMIN 3.9 GM/DL (3.2-5.2); ALT/SGPT 21 U/L (12-78); BLOOD UREA NITROGEN 19 MG/DL (7-18); CALCIUM LEVEL 8.9 MG/DL (8.8-10.2); CARBON DIOXIDE LEVEL 28 MEQ/L (21-32); CHLORIDE LEVEL 107 MEQ/L (98-107); CHOLESTEROL LEVEL 237 MG/DL (<200); CHOLESTEROL RISK RATIO 6.236 (<5); CREATININE FOR GFR 0.74 MG/DL (0.55-1.30); GLOMERULAR FILTRATION RATE > 60.0 (>39); GLUCOSE, FASTING 104 MG/DL (70-100); HDL CHOLESTEROL 38 MG/DL (>40); LDL CHOLESTEROL 162 MG/DL (<100); MAGNESIUM LEVEL 2.1 MG/DL (1.8-2.4); MALB URINE SIEMENS 42.6 MG/L; MAU/CREAT RATIO 28.5 MCG/MG (0.0-30.0); NON-HDL-C 199 MG/DL; POTASSIUM SERUM 3.8 MEQ/L (3.5-5.1); SODIUM LEVEL 141 MEQ/L (136-145); TOTAL PROTEIN 6.8 GM/DL (6.4-8.2); TRIGLYCERIDES LEVEL 183 MG/DL (<150)
== END ==
LOC: M PLALAB 12:47
PROVIDERS: ATTEND Internal Medicine
DX: J44.9 Chronic obstructive pulmonary disease, unspecified (principal); I10 Essential (primary) hypertension; R73.01 Impaired fasting glucose; E78.00 Pure hypercholesterolemia, unspecified; Z68.36 Body mass index [BMI] 36.0-36.9, adult
CPT/HCPCS: 36415; 80053; 80061; 82043; 83036; 83735; 84443; 85025; G0463

== ENCOUNTER → 2021-02-26 | Outpatient (REF) | payer MEDICARE | LOC: M SFHCPLAZ 12:14 | PROVIDERS: ATTEND Internal Medicine | DX: J44.9 Chronic obstructive pulmonary disease, unspecified (principal); I10 Essential (primary) hypertension; R73.01 Impaired fasting glucose; E78.00 Pure hypercholesterolemia, unspecified; Z68.36 Body mass index [BMI] 36.0-36.9, adult ==

== ENCOUNTER → 2021-06-02 | Outpatient (CLI) | payer MEDICARE ==
--- NOTE | 2021-06-02 14:13 | REP ---
INDICATION: PERSONAL H/O NICOTINE DEPEND. COMPARISON: Multiple the latest 05/29/2020 also low-dose screening CT of the lungs TECHNIQUE: Axial noncontrast images from the thoracic inlet to the upper abdomen using low-dose lung screening technique (LDCT). As per the protocol only lung window images were sent to the read station for interpretation FINDINGS: There is a nodule in the right lower lobe which previously measured 4 mm which today measures 7 mm. There are a few additional scattered lung nodules which appear stable. There is a nodule in the upper aspect of the right middle lobe which previously measured 4 mm which today measures 7 mm Emphysematous changes are noted status quo. Grossly, there appears to be newly developed adenopathy in the AP window difficult to evaluate using this protocol. The imaged upper abdomen and imaged osseous structures are centrally unchanged. IMPRESSION: There are 2 lung nodules on the right which have increased in size when compared to the prior exam as described above. This size increase is somewhat concerning. According to the revised Fleischner society criteria these particular nodules represent category 4A lesions for which a 3 month follow-up is recommended. Additionally, there might be newly developed mediastinal adenopathy. There is no revised Fleischner society criteria on the recommendation for follow-up of such a finding. Consider contrast-enhanced diagnostic chest CT at this time or during the three-month follow-up whichever is clinically relevant. <Electronically signed by Carlos Park > 06/02/21 [id number]
== END ==
LOC: M RAD 11:39
PROVIDERS: ATTEND Internal Medicine Pulmonary Disease
DX: Z12.2 Encounter for screening for malignant neoplasm of respiratory organs (principal); Z87.891 Personal history of nicotine dependence; R91.8 Other nonspecific abnormal finding of lung field

== ENCOUNTER → 2021-09-12 | Outpatient (CLI) | payer MEDICARE ==
[~2021-09-12] MED LIST changes: -MONT10TA10 PO; +MONT10TA97 PO
== END ==
LOC: M RAD 17:45
PROVIDERS: ATTEND Internal Medicine Pulmonary Disease
DX: R91.8 Other nonspecific abnormal finding of lung field (principal); J43.9 Emphysema, unspecified; I70.0 Atherosclerosis of aorta; I25.10 Atherosclerotic heart disease of native coronary artery without angina pectoris; K44.9 Diaphragmatic hernia without obstruction or gangrene

== ENCOUNTER → 2021-10-08 | Outpatient (REF) | payer MEDICARE, BC ==
[2021-10-08 18:59] LABS: ALBUMIN 3.6 GM/DL (3.2-5.2); ALT/SGPT 21 U/L (12-78); BILIRUBIN,TOTAL 1.1 MG/DL (0.2-1.0); BLOOD UREA NITROGEN 22 MG/DL (7-18); CALCIUM LEVEL 9.4 MG/DL (8.8-10.2); CARBON DIOXIDE LEVEL 28 MEQ/L (21-32); CHLORIDE LEVEL 110 MEQ/L (98-107); CHOLESTEROL LEVEL 230 MG/DL (<200); CHOLESTEROL RISK RATIO 6.216 (<5); CREATININE FOR GFR 0.78 MG/DL (0.55-1.30); GLOMERULAR FILTRATION RATE > 60.0 (>39); GLUCOSE, FASTING 105 MG/DL (70-100); HDL CHOLESTEROL 37 MG/DL (>40); LDL CHOLESTEROL 161 MG/DL (<100); MAGNESIUM LEVEL 2.2 MG/DL (1.8-2.4); NON-HDL-C 193 MG/DL; POTASSIUM SERUM 4.3 MEQ/L (3.5-5.1); SODIUM LEVEL 142 MEQ/L (136-145); TOTAL PROTEIN 6.6 GM/DL (6.4-8.2); TRIGLYCERIDES LEVEL 159 MG/DL (<150)
[2021-10-08 21:10] LABS: HEMOGLOBIN A1c 5.9 %
== END ==
LOC: M LABDRWAD 16:05
PROVIDERS: ATTEND Internal Medicine
DX: I10 Essential (primary) hypertension (principal); E78.00 Pure hypercholesterolemia, unspecified; R73.01 Impaired fasting glucose

== ENCOUNTER → 2021-10-24 | Outpatient (CLI) | payer MEDICARE, BC | LOC: M RAD 10:43 | PROVIDERS: ATTEND Otolaryngology | DX: J01.40 Acute pansinusitis, unspecified (principal); J33.9 Nasal polyp, unspecified ==

== ENCOUNTER → 2021-11-07 | Outpatient (CLI) | payer MEDICARE, BC ==
[~2021-11-07] MED LIST changes: +ERGO500029 PO; +PRED20TA PO
== END ==
LOC: M LABSMTC 11:58
PROVIDERS: ATTEND Anesthesiology
DX: Z01.812 Encounter for preprocedural laboratory examination (principal); Z20.822 Contact with and (suspected) exposure to COVID-19

== ENCOUNTER 2021-11-12 09:58 | Day surgery (SDC) | payer MEDICARE, BC ==
[~2021-11-12] VITALS: Ht 167.6 cm; Wt 99.2 kg
[~2021-11-12 09:58] MED LIST changes: +LIDOCAINE 1% MDV 20ML VIAL SQ PRN; +LR 1,000 ML IV ONE
[2021-11-12] MEDS ORDERED: SUGAMMADEX SODIUM 500 MG/5 ML VIAL (BRIDION) As Ordered ONE (10:22)
[2021-11-12] MEDS ORDERED: ONDANSETRON 4MG/2ML VIAL As Ordered ONE (10:22)
[2021-11-12] MEDS ORDERED: dexameTHASONE 4 MG/ML 1ML VIAL (J1100 PER 1MG) As Ordered ONE (10:22)
[2021-11-12] MEDS ORDERED: fentaNYL 100 MCG/2 ML INJECTION As Ordered ONE ×2 (10:22→16:53)
[2021-11-12] MEDS ORDERED: ROCURONIUM BROMIDE 50 MG/5 ML VIAL As Ordered ONE ×2 (10:22→14:51)
[2021-11-12] MEDS ORDERED: LIDOCAINE 2% 100MG/5ML SDV (FOR ANES.) As Ordered ONE (10:22)
[2021-11-12] MEDS ORDERED: propofoL 200 MG/20 ML VIAL As Ordered ONE ×2 (10:24→13:32)
[2021-11-12] MEDS ORDERED: LIDOCAINE W/EPINEPHRINE 1% 20ML VIAL As Ordered ONE (12:04)
[2021-11-12] MEDS ORDERED: METHYLENE BLUE 0.5% (5MG/ML) 10 ML AMP (PROVAYBLUE) As Ordered ONE (12:04)
[2021-11-12] MEDS ORDERED: OXYMETAZOLINE 0.05% NASAL SPRAY (AFRIN) As Ordered ONE ×2 (12:04→13:35)
[2021-11-12] MEDS ORDERED: COCAINE 4% 4ML NASAL SOLUTION BTL As Ordered ONE (12:05)
[2021-11-12] MEDS ORDERED: MIDAZOLAM INJ 2MG/2ML VIAL (J2250 PER 1MG) As Ordered ONE (12:14)
[2021-11-12] MEDS ORDERED: PHENYLephrine 500MCG 5ML (100MCG/ML) SYRINGE As Ordered ONE ×2 (12:55→15:08)
[2021-11-12] MEDS ORDERED: ESMOLOL INJ 100MG/10ML VIAL As Ordered ONE (13:28)
[2021-11-12] MEDS ORDERED: LABETALOL 100MG/20ML VIAL As Ordered ONE (13:33)
[2021-11-12] MEDS ORDERED: ePHEDrine SULFATE 25 MG/5 ML(5MG/ML) SYRINGE As Ordered ONE (13:46)
[2021-11-12] MEDS ORDERED: NORCO, ANEXSIA 5/325MG TABLET (HYDROcodone/ACETAMINOPHEN) PO PRN (17:15)
[2021-11-12] MEDS ORDERED: ONDANSETRON 4MG/2ML VIAL IV PRN ×2 (17:15→17:20)
[2021-11-12] MEDS: LR 1,000 ML IV SCH (17:15)
[2021-11-12] MEDS ORDERED: LR 1,000 ML IV SCH (17:15)
[2021-11-12] MEDS ORDERED: fentaNYL 100 MCG/2 ML INJECTION IV PRN (17:15)
[2021-11-12] MEDS ORDERED: MORPHINE 10 MG/ML 1ML VIAL IV PRN (17:20)
[2021-11-12] MEDS ORDERED: ANEXSIA, NORCO 7.5MG/325MG TABLET(HYDROCODONE/APAP) PO PRN (17:20)
[2021-11-12 19:50] VITALS: BP 123/58
[2021-11-13 00:32] VITALS: BP 145/63
[2021-11-13 04:19] VITALS: BP 120/59
[2021-11-13 07:36] VITALS: BP 154/70
[2021-11-13] MEDS: LR 1,000 ML IV SCH (08:27)
== END 2021-11-13 11:01 | disposition home or self-care (01) ==
LOC: M SDC 09:58 → UNDOADMIN 19:48 → M PCU 19:48 → UNDODISIN 11-13 11:01 → M SDC 11-13 11:01
PROVIDERS: ATTEND Otolaryngology
DX: J32.9 Chronic sinusitis, unspecified (principal); J33.9 Nasal polyp, unspecified; E78.5 Hyperlipidemia, unspecified; I10 Essential (primary) hypertension; K21.9 Gastro-esophageal reflux disease without esophagitis; M81.0 Age-related osteoporosis without current pathological fracture; G43.909 Migraine, unspecified, not intractable, without status migrainosus; Z87.891 Personal history of nicotine dependence; Z79.899 Other long term (current) drug therapy; Z79.82 Long term (current) use of aspirin; J44.9 Chronic obstructive pulmonary disease, unspecified; Z86.16 Personal history of COVID-19; Z88.8 Allergy status to other drugs, medicaments and biological substances; Z88.1 Allergy status to other antibiotic agents
CPT/HCPCS: 31255; 31267; 31288; 88305; C9046; J1100; J2250; J2370; J2405; J3010; Q9968

== ENCOUNTER → 2022-02-12 | Outpatient (CLI) | payer MEDICARE, BC ==
[~2022-02-12] MED LIST changes: -LIDOCAINE 1% MDV 20ML VIAL SQ PRN; -LR 1,000 ML IV ONE
== END ==
LOC: M LABSMTC 10:57
PROVIDERS: ATTEND Surgery
DX: Z01.812 Encounter for preprocedural laboratory examination (principal); Z20.822 Contact with and (suspected) exposure to COVID-19

== ENCOUNTER → 2022-03-13 | Outpatient (CLI) | payer MEDICARE, BC | LOC: M RAD 18:00 | PROVIDERS: ATTEND Internal Medicine Pulmonary Disease | DX: R91.8 Other nonspecific abnormal finding of lung field (principal) ==

== ENCOUNTER → 2022-04-15 | Outpatient (CLI) | payer MEDICARE, BC | LOC: M LABSMTC 11:27 | PROVIDERS: ATTEND Surgery | DX: Z11.52 Encounter for screening for COVID-19 (principal) ==

== ENCOUNTER → 2022-08-24 | Outpatient (CLI) | payer MEDICARE, BC | LOC: M PLAIMG 10:40 | PROVIDERS: ATTEND Internal Medicine Pulmonary Disease | DX: R91.8 Other nonspecific abnormal finding of lung field (principal) ==

== ENCOUNTER → 2023-04-06 | Outpatient (REF) | payer MEDICARE, BC ==
[2023-04-06 15:54] LABS: HEMOGLOBIN A1c 5.8 % (4.0-6.0)
[2023-04-06 15:56] LABS: BASO # 0.1 10^3/uL (0.0-0.2); BASO % 0.7 % (0.0-1.0); EOS # 0.4 10^3/uL (0.0-0.5); EOS % 5.3 % (0.0-3.0); HEMATOCRIT 38.4 % (36.0-47.0); HEMOGLOBIN 12.2 g/dl (12.0-15.5); LYMPH # 1.8 10^3/uL (1.5-5.0); LYMPH % 25.8 % (24.0-44.0); MEAN CORPUSCULAR HEMOGLOBIN 25.8 pg (27.0-33.0); MEAN CORPUSCULAR HGB CONC 31.8 g/dl (32.0-36.5); MEAN CORPUSCULAR VOLUME 81.4 fl (80.0-96.0); MONO # 0.6 10^3/uL (0.0-0.8); MONO % 8.1 % (2.0-8.0); NEUTROPHILS # 4.1 10^3/uL (1.5-8.5); NEUTROPHILS % 59.7 % (36.0-66.0); PLATELET COUNT, AUTOMATED 365 10^3/uL (150-450); RED BLOOD COUNT 4.72 10^6/uL (4.00-5.40); WHITE BLOOD COUNT 6.8 10^3/uL (4.0-10.0)
[2023-04-06 16:15] LABS: ALBUMIN 3.1 G/DL (3.2-5.2); ALKALINE PHOSPHATASE 105 U/L (46-116); ALT/SGPT 14 U/L (7.0-40); AST/SGOT < 8 U/L (<34); BILIRUBIN,TOTAL 0.6 MG/DL (0.3-1.2); BLOOD UREA NITROGEN 19 MG/DL (9-23); CALCIUM LEVEL 8.8 MG/DL (8.3-10.6); CARBON DIOXIDE LEVEL 27 MMOL/L (20-31); CHLORIDE LEVEL 110 MMOL/L (98-107); CHOLESTEROL LEVEL 176 MG/DL (<200); CHOLESTEROL RISK RATIO 5.26 (<5); CREATININE FOR GFR 0.71 MG/DL (0.55-1.30); GLOMERULAR FILTRATION RATE > 60.0 (>39); GLUCOSE, FASTING 105 MG/DL (74-106); HDL CHOLESTEROL 33.4 MG/DL (>40); LDL CHOLESTEROL 101.8 MG/DL (<100); NON-HDL-C 142.6 MG/DL; SODIUM LEVEL 144 MMOL/L (136-145); TOTAL PROTEIN 5.9 G/DL (5.7-8.2); TRIGLYCERIDES LEVEL 204 MG/DL (<150)
== END ==
LOC: M LABDRWAD 12:18
PROVIDERS: ATTEND Internal Medicine
DX: E78.5 Hyperlipidemia, unspecified (principal); K21.9 Gastro-esophageal reflux disease without esophagitis; R73.01 Impaired fasting glucose

== ENCOUNTER 2023-10-18 10:07 | Emergency (ER) | payer MEDICARE ==
[~2023-10-18] VITALS: Ht 167.6 cm; Wt 103.0 kg
[2023-10-18] MEDS ORDERED: nasocort NARES (10:51)
[2023-10-18] MEDS ORDERED: VENTAER INH (10:51)
[2023-10-18] MEDS ORDERED: CVS400CA10 PO (10:51)
[2023-10-18 11:29] LABS: BASO % 0.6 % (0.0-1.0); EOS # 0.4 10^3/uL (0.0-0.5); EOS % 5.8 % (0.0-3.0); HEMATOCRIT 39.3 % (36.0-47.0); HEMOGLOBIN 12.7 g/dl (12.0-15.5); LYMPH # 1.1 10^3/uL (1.5-5.0); LYMPH % 15.9 % (24.0-44.0); MEAN CORPUSCULAR HEMOGLOBIN 25.4 pg (27.0-33.0); MEAN CORPUSCULAR HGB CONC 32.3 g/dl (32.0-36.5); MEAN CORPUSCULAR VOLUME 78.6 fl (80.0-96.0); MONO # 0.5 10^3/uL (0.0-0.8); MONO % 8.2 % (2.0-8.0); NEUTROPHILS # 4.6 10^3/uL (1.5-8.5); PLATELET COUNT, AUTOMATED 375 10^3/uL (150-450); WHITE BLOOD COUNT 6.6 10^3/uL (4.0-10.0)
[2023-10-18] MEDS: MORPHINE 2 MG/ML 1ML VIAL IV ONE (11:35)
[2023-10-18 11:51] LABS: BLOOD UREA NITROGEN 22 MG/DL (9-23); CALCIUM LEVEL 9.1 MG/DL (8.3-10.6); CARBON DIOXIDE LEVEL 26 MMOL/L (20-31); CHLORIDE LEVEL 111 MMOL/L (98-107); GLOMERULAR FILTRATION RATE > 60.0 (>39); GLUCOSE, FASTING 122 MG/DL (74-106); POTASSIUM SERUM 3.9 MMOL/L (3.5-5.1); SODIUM LEVEL 140 MMOL/L (136-145)
[2023-10-18] MEDS ORDERED: NASA1SPR NARES (11:57)
[2023-10-18] MEDS ORDERED: ISOVUE-370 76% 100ML VIAL As Ordered ONE (11:57)
[2023-10-18] MEDS ORDERED: HOME MED LIST COMPLETE! XX SCH (12:00)
[2023-10-18 15:28] LABS: ALBUMIN 3.5 G/DL (3.2-5.2); ALKALINE PHOSPHATASE 111 U/L (46-116); ALT/SGPT 17 U/L (7.0-40); AST/SGOT 13 U/L (<34); BILIRUBIN,DIRECT 0.2 MG/DL (<0.4); BILIRUBIN,TOTAL 0.7 MG/DL (0.3-1.2); TOTAL PROTEIN 6.5 G/DL (5.7-8.2)
[2023-10-18] MEDS: KETOROLAC 30 MG/ML 1ML VIAL IV ONE (15:47)
[2023-10-18] MEDS ORDERED: HYDR-4571 PO (18:01)
[2023-10-18 18:11] VITALS: TEMP 97.3; O2SAT 96
[2023-10-18 18:41] VITALS: BP 160/80
== END 2023-10-18 18:50 | disposition home or self-care (01) ==
LOC: EDBD 10:07 → M ED 10:07
DX: R09.1 Pleurisy (principal); R91.8 Other nonspecific abnormal finding of lung field; I10 Essential (primary) hypertension; E78.5 Hyperlipidemia, unspecified; J44.9 Chronic obstructive pulmonary disease, unspecified; J30.89 Other allergic rhinitis; Z79.899 Other long term (current) drug therapy; Z88.1 Allergy status to other antibiotic agents; Z91.89 Other specified personal risk factors, not elsewhere classified
CPT/HCPCS: 36415; 71275; 80048; 80076; 85025; 96374; 96375; 99285; J1885; Q9967

== ENCOUNTER → 2023-10-29 | Outpatient (REF) | payer MEDICARE ==
[~2023-10-29] MED LIST changes: +CVS400CA10 PO; +HYDR-4571 PO; +NASA1SPR NARES; +VENTAER INH; +nasocort NARES
== END ==
LOC: M LAB REF 16:05
PROVIDERS: ATTEND Otolaryngology
DX: J32.0 Chronic maxillary sinusitis (principal); J31.0 Chronic rhinitis

== ENCOUNTER → 2023-11-29 | Outpatient (CLI) | payer MEDICARE | LOC: M PLARAD 07:59 | PROVIDERS: ATTEND Internal Medicine | DX: R91.8 Other nonspecific abnormal finding of lung field (principal); Z85.3 Personal history of malignant neoplasm of breast | CPT/HCPCS: 78815; A9552 ==

== ENCOUNTER 2023-12-15 09:17 | Day surgery (SDC) | payer MEDICARE ==
[~2023-12-15] VITALS: Ht 167.6 cm; Wt 102.4 kg
[2023-12-15] MEDS: EPINEPHrine 1MG/10ML SYRINGE 1.5IN As Ordered ONE (06:37)
[2023-12-15] MEDS: BACITRACIN OINTMENT 30GM TUBE As Ordered ONE (08:59)
[~2023-12-15 09:17] MED LIST changes: +BUDE10.7 IH
[2023-12-15] MEDS ORDERED: fentaNYL 100 MCG/2 ML INJECTION As Ordered ONE (10:06)
[2023-12-15] MEDS ORDERED: SUGAMMADEX SODIUM 500 MG/5 ML VIAL (BRIDION) As Ordered ONE (10:06)
[2023-12-15] MEDS ORDERED: MIDAZOLAM INJ 2MG/2ML VIAL As Ordered ONE (10:06)
[2023-12-15] MEDS ORDERED: ONDANSETRON 4MG 2ML VIAL As Ordered ONE (10:06)
[2023-12-15] MEDS ORDERED: ROCURONIUM BROMIDE 50MG/5ML VIAL As Ordered ONE (10:06)
[2023-12-15] MEDS ORDERED: propofoL 200 MG/20 ML VIAL As Ordered ONE (10:06)
[2023-12-15] MEDS ORDERED: LIDOCAINE 2% 100MG/5ML SDV (FOR ANES.) As Ordered ONE (10:06)
[2023-12-15] MEDS: LR 1,000 ML IV SCH (10:10)
[2023-12-15] MEDS: CETACAINE SPRAY 5GM As Ordered ONE (11:25)
[2023-12-15] MEDS ORDERED: fentaNYL 100 MCG/2 ML INJECTION IV PRN (11:35)
[2023-12-15] MEDS ORDERED: LR 1,000 ML IV SCH (11:35)
[2023-12-15] MEDS ORDERED: HYDROMORPHONE HCL 0.5 MG/ 0.5 ML SYRINGE IV PRN (11:35)
[2023-12-15] MEDS ORDERED: ONDANSETRON 4MG 2ML VIAL IV PRN (11:35)
[2023-12-15] MEDS ORDERED: oxyCODONE 5MG TAB PO PRN (11:35)
[2023-12-15 13:29] VITALS: BP 146/82; TEMP 97.5
[2023-12-15 13:43] VITALS: O2SAT 96
== END 2023-12-15 13:47 | disposition home or self-care (01) ==
LOC: M SDC 09:17
PROVIDERS: ATTEND Internal Medicine Pulmonary Disease
DX: C77.9 Secondary and unspecified malignant neoplasm of lymph node, unspecified (principal); I10 Essential (primary) hypertension; E78.5 Hyperlipidemia, unspecified; K21.9 Gastro-esophageal reflux disease without esophagitis; M81.0 Age-related osteoporosis without current pathological fracture; G43.909 Migraine, unspecified, not intractable, without status migrainosus; J30.2 Other seasonal allergic rhinitis; J44.9 Chronic obstructive pulmonary disease, unspecified; Z87.891 Personal history of nicotine dependence; Z88.1 Allergy status to other antibiotic agents; Z79.51 Long term (current) use of inhaled steroids; Z79.899 Other long term (current) drug therapy; Z86.16 Personal history of COVID-19; Z85.3 Personal history of malignant neoplasm of breast
CPT/HCPCS: 31629; 31654; 71045; 88173; 88305; C1887; J0665; J1100; J2250; J2405; J3010

== ENCOUNTER → 2023-12-27 | Outpatient (CLI) | payer MEDICARE | LOC: M ONCR 10:38 | PROVIDERS: ATTEND General Practice | DX: C34.11 Malignant neoplasm of upper lobe, right bronchus or lung (principal); C78.1 Secondary malignant neoplasm of mediastinum; Z87.891 Personal history of nicotine dependence; Z71.2 Person consulting for explanation of examination or test findings; Z91.048 Other nonmedicinal substance allergy status; J30.89 Other allergic rhinitis; Z88.1 Allergy status to other antibiotic agents; Z79.51 Long term (current) use of inhaled steroids; Z79.899 Other long term (current) drug therapy ==

== ENCOUNTER → 2024-01-07 | Outpatient (RCR) | payer MEDICARE | LOC: M ONCR 10:32 | PROVIDERS: ATTEND General Practice | DX: Z51.0 Encounter for antineoplastic radiation therapy (principal); C34.11 Malignant neoplasm of upper lobe, right bronchus or lung; C78.1 Secondary malignant neoplasm of mediastinum ==

== ENCOUNTER → 2024-01-17 | Outpatient (REF) | payer MEDICARE ==
[~2024-01-17] MED LIST changes: +ONDA-284 PO; +PROC10TA5 PO
[2024-01-17 14:29] LABS: BASO % 0.5 % (0.0-1.0); EOS # 0.3 10^3/uL (0.0-0.5); EOS % 3.3 % (0.0-3.0); HEMATOCRIT 39.2 % (36.0-47.0); HEMOGLOBIN 12.6 g/dl (12.0-15.5); LYMPH # 1.5 10^3/uL (1.5-5.0); LYMPH % 18.8 % (24.0-44.0); MEAN CORPUSCULAR HEMOGLOBIN 25.8 pg (27.0-33.0); MEAN CORPUSCULAR HGB CONC 32.1 g/dl (32.0-36.5); MEAN CORPUSCULAR VOLUME 80.2 fl (80.0-96.0); MONO # 0.7 10^3/uL (0.0-0.8); MONO % 8.8 % (2.0-8.0); NEUTROPHILS # 5.3 10^3/uL (1.5-8.5); NEUTROPHILS % 68.2 % (36.0-66.0); PLATELET COUNT, AUTOMATED 355 10^3/uL (150-450); RED BLOOD COUNT 4.89 10^6/uL (4.00-5.40); WHITE BLOOD COUNT 7.8 10^3/uL (4.0-10.0)
[2024-01-17 15:02] LABS: ALBUMIN 3.5 G/DL (3.2-5.2); ALKALINE PHOSPHATASE 106 U/L (46-116); ALT/SGPT 15 U/L (7.0-40); AST/SGOT < 8 U/L (<34); BILIRUBIN,TOTAL 0.9 MG/DL (0.3-1.2); BLOOD UREA NITROGEN 25 MG/DL (9-23); CALCIUM LEVEL 10.2 MG/DL (8.3-10.6); CARBON DIOXIDE LEVEL 26 MMOL/L (20-31); CHLORIDE LEVEL 109 MMOL/L (98-107); CHOLESTEROL LEVEL 183 MG/DL (<200); CHOLESTEROL RISK RATIO 5.47 (<5); GLOMERULAR FILTRATION RATE > 60.0 (>39); GLUCOSE, FASTING 90 MG/DL (74-106); HDL CHOLESTEROL 33.4 MG/DL (>40); LDL CHOLESTEROL 110.8 MG/DL (<100); MAGNESIUM LEVEL 1.8 MG/DL (1.8-2.4); NON-HDL-C 149.6 MG/DL; POTASSIUM SERUM 4.4 MMOL/L (3.5-5.1); SODIUM LEVEL 142 MMOL/L (136-145); TOTAL PROTEIN 6.3 G/DL (5.7-8.2); TRIGLYCERIDES LEVEL 194 MG/DL (<150)
[2024-01-17 15:04] LABS: THYROID STIMULATING HORMONE 2.202 uIU/ML (0.55-4.78)
== END ==
LOC: M LAB REF 14:18
PROVIDERS: ATTEND Internal Medicine
DX: K21.9 Gastro-esophageal reflux disease without esophagitis (principal); E78.5 Hyperlipidemia, unspecified; I10 Essential (primary) hypertension; R73.01 Impaired fasting glucose

== ENCOUNTER → 2024-01-25 | Outpatient (CLI) | payer MEDICARE ==
[~2024-01-25] MED LIST changes: +LIDO30CR18 TOP; +MAGN400T2 PO
== END ==
LOC: M PAL 09:44
PROVIDERS: ATTEND Nurse Practitioner Adult Health
DX: C34.90 Malignant neoplasm of unspecified part of unspecified bronchus or lung (principal); Z51.5 Encounter for palliative care; Z79.899 Other long term (current) drug therapy; Z79.51 Long term (current) use of inhaled steroids; Z80.1 Family history of malignant neoplasm of trachea, bronchus and lung; Z87.891 Personal history of nicotine dependence; Z91.048 Other nonmedicinal substance allergy status; Z88.1 Allergy status to other antibiotic agents; J30.89 Other allergic rhinitis

== ENCOUNTER → 2024-01-31 | Outpatient (CLI) | payer MEDICARE ==
[~2024-01-31] VITALS: Ht 167.6 cm; Wt 101.8 kg
[~2024-01-31] MED LIST changes: +LIDOCAINE 1% MDV 20ML VIAL As Ordered ONE; +LIDOCAINE W/EPINEPHRINE 1% 20ML VIAL As Ordered ONE; +MIDAZOLAM INJ 2MG/2ML VIAL As Ordered ONE; +NS 1,000 ML IV SCH; +ceFAZolin 2 GM/D5W 50 ML IV BAG As Ordered ONE; +ceFAZolin SOD 2 GM in IV 1 EA IV ONE; +fentaNYL 100 MCG/2 ML INJECTION As Ordered ONE
[2024-01-31 10:00] VITALS: TEMP 97.6
[2024-01-31 12:20] VITALS: BP 158/80; O2SAT 96
== END ==
LOC: M IRPRO 09:49
PROVIDERS: ATTEND Specialist
DX: C79.9 Secondary malignant neoplasm of unspecified site (principal)
CPT/HCPCS: 36561; 99152; 99153; C1769; J0690; J2250; J3010

== ENCOUNTER 2024-02-04 11:13 | Outpatient (RCR) | payer MEDICARE ==
[~2024-02-04 11:13] MED LIST changes: -LIDOCAINE 1% MDV 20ML VIAL As Ordered ONE; -LIDOCAINE W/EPINEPHRINE 1% 20ML VIAL As Ordered ONE; -MIDAZOLAM INJ 2MG/2ML VIAL As Ordered ONE; -NS 1,000 ML IV SCH; -ceFAZolin 2 GM/D5W 50 ML IV BAG As Ordered ONE; -ceFAZolin SOD 2 GM in IV 1 EA IV ONE; -fentaNYL 100 MCG/2 ML INJECTION As Ordered ONE
== END 2024-02-06 ==
LOC: M ONCR 11:13
PROVIDERS: ATTEND General Practice
DX: Z51.0 Encounter for antineoplastic radiation therapy (principal); C34.11 Malignant neoplasm of upper lobe, right bronchus or lung; C78.1 Secondary malignant neoplasm of mediastinum

== ENCOUNTER 2024-03-03 10:12 | Outpatient (RCR) | payer MEDICARE | END 2024-03-08 | LOC: M ONCR 10:12 | PROVIDERS: ATTEND General Practice | DX: Z51.0 Encounter for antineoplastic radiation therapy (principal); C34.11 Malignant neoplasm of upper lobe, right bronchus or lung ==

== ENCOUNTER → 2024-03-29 | Outpatient (CLI) | payer MEDICARE ==
[~2024-03-29] VITALS: Ht 167.6 cm; Wt 99.0 kg
[2024-03-29 09:42] VITALS: BP 159/94; O2SAT 98
== END ==
LOC: M PAL 09:30
PROVIDERS: ATTEND Nurse Practitioner Adult Health
DX: G89.3 Neoplasm related pain (acute) (chronic) (principal); C34.90 Malignant neoplasm of unspecified part of unspecified bronchus or lung; Z51.5 Encounter for palliative care; Z79.51 Long term (current) use of inhaled steroids; Z79.899 Other long term (current) drug therapy; Z80.1 Family history of malignant neoplasm of trachea, bronchus and lung; Z87.891 Personal history of nicotine dependence; Z91.048 Other nonmedicinal substance allergy status; Z88.1 Allergy status to other antibiotic agents; J30.89 Other allergic rhinitis; Z90.13 Acquired absence of bilateral breasts and nipples; Z90.710 Acquired absence of both cervix and uterus; Z92.21 Personal history of antineoplastic chemotherapy; Z92.3 Personal history of irradiation

== ENCOUNTER → 2024-05-05 | Outpatient (CLI) | payer MEDICARE ==
[~2024-05-05] MED LIST changes: +ISOVUE-370 76% 100ML VIAL As Ordered ONE
== END ==
LOC: M RAD 09:32
PROVIDERS: ATTEND Specialist
DX: C34.90 Malignant neoplasm of unspecified part of unspecified bronchus or lung (principal); J44.9 Chronic obstructive pulmonary disease, unspecified
CPT/HCPCS: 71260; Q9967

== ENCOUNTER → 2024-05-30 | Outpatient (CLI) | payer MEDICARE ==
[~2024-05-30] VITALS: Ht 165.1 cm; Wt 98.2 kg
[~2024-05-30] MED LIST changes: -ISOVUE-370 76% 100ML VIAL As Ordered ONE
[2024-05-30 13:02] VITALS: BP 148/78; O2SAT 98
== END ==
LOC: M PAL 12:30
PROVIDERS: ATTEND Nurse Practitioner Adult Health
DX: G89.3 Neoplasm related pain (acute) (chronic) (principal); C34.90 Malignant neoplasm of unspecified part of unspecified bronchus or lung; Z51.5 Encounter for palliative care; Z79.51 Long term (current) use of inhaled steroids; Z79.899 Other long term (current) drug therapy; Z80.1 Family history of malignant neoplasm of trachea, bronchus and lung; Z87.891 Personal history of nicotine dependence; Z91.048 Other nonmedicinal substance allergy status; Z88.1 Allergy status to other antibiotic agents; J30.89 Other allergic rhinitis; Z90.13 Acquired absence of bilateral breasts and nipples; Z90.710 Acquired absence of both cervix and uterus; Z92.21 Personal history of antineoplastic chemotherapy; Z92.3 Personal history of irradiation

== ENCOUNTER 2024-08-22 15:25 | Emergency (ER) | payer MEDICARE ==
[~2024-08-22] VITALS: Ht 167.6 cm; Wt 98.9 kg
[2024-08-22 16:29] LABS: BASO % 0.4 % (0.0-1.0); EOS # 0.3 10^3/uL (0.0-0.5); EOS % 4.5 % (0.0-3.0); HEMATOCRIT 35.8 % (36.0-47.0); HEMOGLOBIN 11.7 g/dl (12.0-15.5); LYMPH # 0.7 10^3/uL (1.5-5.0); LYMPH % 10.7 % (24.0-44.0); MEAN CORPUSCULAR HEMOGLOBIN 25.7 pg (27.0-33.0); MEAN CORPUSCULAR HGB CONC 32.7 g/dl (32.0-36.5); MEAN CORPUSCULAR VOLUME 78.7 fl (80.0-96.0); MONO # 0.7 10^3/uL (0.0-0.8); MONO % 9.8 % (2.0-8.0); NEUTROPHILS % 74.3 % (36.0-66.0); PLATELET COUNT, AUTOMATED 306 10^3/uL (150-450); RED BLOOD COUNT 4.55 10^6/uL (4.00-5.40); WHITE BLOOD COUNT 6.7 10^3/uL (4.0-10.0)
[2024-08-22 16:35] LABS: CK-MB VALUE MASS < 1.0 NG/ML (<3.6)
[2024-08-22 16:38] LABS: ALBUMIN 3.4 G/DL (3.2-5.2); ALKALINE PHOSPHATASE 126 U/L (35-104); ALT/SGPT 14 U/L (7.0-40); AST/SGOT 13 U/L (<34); BILIRUBIN,DIRECT 0.1 MG/DL (<0.4); BILIRUBIN,TOTAL 0.5 MG/DL (0.3-1.2); BLOOD UREA NITROGEN 20 MG/DL (9-23); CALCIUM LEVEL 9.2 MG/DL (8.3-10.6); CARBON DIOXIDE LEVEL 24 MMOL/L (20-31); CHLORIDE LEVEL 108 MMOL/L (98-107); CREATININE FOR GFR 0.81 MG/DL (0.55-1.30); GLOMERULAR FILTRATION RATE > 60.0 (>39); GLUCOSE, FASTING 105 MG/DL (74-106); POTASSIUM SERUM 4.9 MMOL/L (3.5-5.1); SODIUM LEVEL 140 MMOL/L (136-145); TOTAL PROTEIN 6.5 G/DL (5.7-8.2)
[2024-08-22 16:39] LABS: THYROID STIMULATING HORMONE 3.097 uIU/ML (0.55-4.78); THYROXINE (T4) 8.1 UG/DL (4.5-10.9)
[2024-08-22 16:42] LABS: CPK CREATINE PHOSPHOKINASE 58 U/L (34-145); MB/CK RELATIVE INDEX 1.72 (< OR =4)
[2024-08-22] MEDS ORDERED: ISOVUE-370 76% 100ML VIAL As Ordered ONE (17:23)
[2024-08-22] MEDS ORDERED: PRED10TA2 PO (19:26)
[2024-08-22] MEDS: SODIUM CHLORIDE 0.9% INJ 10 ML SYR IV SCH (21:31)
[2024-08-22 21:32] VITALS: BP 128/63; TEMP 96.2; O2SAT 96
== END 2024-08-22 21:32 | disposition home or self-care (01) ==
LOC: M ED 15:25
DX: J01.90 Acute sinusitis, unspecified (principal); J20.9 Acute bronchitis, unspecified; I10 Essential (primary) hypertension; Z79.52 Long term (current) use of systemic steroids; Z79.02 Long term (current) use of antithrombotics/antiplatelets; Z79.899 Other long term (current) drug therapy; Z91.048 Other nonmedicinal substance allergy status; Z88.8 Allergy status to other drugs, medicaments and biological substances
CPT/HCPCS: 70487; 70498; 71045; 71275; 80048; 80076; 82550; 82553; 83605; 83880; 84436; 84443; 84484; 85025; 87040; 87486; 87581; 87633; 87798; 93005; 93041; 94760; 96374; 99285; J1642; Q9967

== ENCOUNTER → 2024-09-05 | Outpatient (CLI) | payer MEDICARE ==
[~2024-09-05] MED LIST changes: +BACTDSTA PO; +PRED10TA2 PO
== END ==
LOC: M ONCR 11:13
PROVIDERS: ATTEND General Practice
DX: C34.11 Malignant neoplasm of upper lobe, right bronchus or lung (principal); C78.1 Secondary malignant neoplasm of mediastinum; Z92.21 Personal history of antineoplastic chemotherapy; Z92.3 Personal history of irradiation; Z79.51 Long term (current) use of inhaled steroids; Z79.620 Long term (current) use of immunosuppressive biologic; Z79.899 Other long term (current) drug therapy; Z87.891 Personal history of nicotine dependence; Z91.048 Other nonmedicinal substance allergy status; J30.89 Other allergic rhinitis; Z88.1 Allergy status to other antibiotic agents

== ENCOUNTER → 2024-11-16 | Outpatient (CLI) | payer MEDICARE ==
[~2024-11-16] MED LIST changes: +ISOVUE-370 76% 100ML VIAL As Ordered ONE; +PRED5TA PO
== END ==
LOC: M RAD 11:03
PROVIDERS: ATTEND Specialist
DX: C34.90 Malignant neoplasm of unspecified part of unspecified bronchus or lung (principal); J43.2 Centrilobular emphysema; R91.1 Solitary pulmonary nodule; I70.0 Atherosclerosis of aorta
CPT/HCPCS: 71260; Q9967

== ENCOUNTER → 2024-12-07 | Outpatient (CLI) | payer MEDICARE ==
[~2024-12-07] MED LIST changes: -ISOVUE-370 76% 100ML VIAL As Ordered ONE
== END ==
LOC: M WHC 07:37
PROVIDERS: ATTEND Specialist
DX: C34.92 Malignant neoplasm of unspecified part of left bronchus or lung (principal); Z85.3 Personal history of malignant neoplasm of breast

== ENCOUNTER → 2025-03-06 | Outpatient (CLI) | payer MEDICARE | LOC: M ONCR 10:42 | PROVIDERS: ATTEND General Practice | DX: C77.1 Secondary and unspecified malignant neoplasm of intrathoracic lymph nodes (principal); R91.8 Other nonspecific abnormal finding of lung field; Z87.891 Personal history of nicotine dependence; Z92.21 Personal history of antineoplastic chemotherapy; Z92.3 Personal history of irradiation; Z91.048 Other nonmedicinal substance allergy status; J30.89 Other allergic rhinitis; Z88.1 Allergy status to other antibiotic agents; Z79.51 Long term (current) use of inhaled steroids; Z79.899 Other long term (current) drug therapy ==

== ENCOUNTER → 2025-06-07 | Outpatient (CLI) | payer MEDICARE ==
[~2025-06-07] MED LIST changes: -BACTDSTA; -BACTDSTA PO; +SULF-8; +SULF-8 PO
== END ==
LOC: M ONCR 11:32
PROVIDERS: ATTEND General Practice
DX: C34.90 Malignant neoplasm of unspecified part of unspecified bronchus or lung (principal); Z71.2 Person consulting for explanation of examination or test findings

== ENCOUNTER → 2025-07-19 | Outpatient (CLI) | payer MEDICARE ==
[~2025-07-19] MED LIST changes: +ISOVUE-370 76% 100 ML VIAL As Ordered ONE
== END ==
LOC: M RAD 11:42
PROVIDERS: ATTEND Specialist
DX: C34.90 Malignant neoplasm of unspecified part of unspecified bronchus or lung (principal); J43.2 Centrilobular emphysema; K44.9 Diaphragmatic hernia without obstruction or gangrene; Z95.828 Presence of other vascular implants and grafts
CPT/HCPCS: 71260; Q9967

== ENCOUNTER → 2025-07-20 | Outpatient (CLI) | payer MEDICARE ==
[~2025-07-20] MED LIST changes: -ISOVUE-370 76% 100 ML VIAL As Ordered ONE
== END ==
LOC: M ONCR 11:00
PROVIDERS: ATTEND General Practice
DX: Z08 Encounter for follow-up examination after completed treatment for malignant neoplasm (principal); Z85.118 Personal history of other malignant neoplasm of bronchus and lung; H26.9 Unspecified cataract; Z87.891 Personal history of nicotine dependence; Z92.21 Personal history of antineoplastic chemotherapy; Z92.3 Personal history of irradiation; Z91.048 Other nonmedicinal substance allergy status; Z88.1 Allergy status to other antibiotic agents; J30.89 Other allergic rhinitis; Z79.51 Long term (current) use of inhaled steroids; Z79.899 Other long term (current) drug therapy